=== PATIENT | male | born 1930 | race Caucasian/White ===

== ENCOUNTER → 2016-11-18 | Outpatient (CLI) | payer MEDICARE ==
[~2016-11-18] MED LIST: ASPIRIN PO; ASPIRINEC PO; BENAZEPRIL HCL40 MG PO; BENAZEPRIL PO; CELEBREX PO; CENTRUM SILVER PO; COLCRYS0.6 MG PO; COUMADIN5 MG PO; DARVOCET-N 1001 TAB PO; GLUCOTROL PO; GLUCOVANCE 5/501 TA1 PO; HYDROCODON-ACE1 EAC7 PO; JALYN 0.5-0.41 EACH PO; KEFLEX500 M1 PO; LASIX PO; LASIX20 MG PO; LEVEMIR FL100 UNIT/1 SUBQ; LIPITOR40 MG PO; LOTENSIN40 MG PO; LOVAZA1 G PO; METOPROLOL TAR25 MG PO; MULTI-DAY VITAM1 TAB PO; NEXIUM PO; NITROGLYCERIN; OCUVITE SOFTGEL1 CA1 PO; PERCOCET 5-3251 TAB PO; PLAVIX PO; SULAR PO; SULAR20 MG PO; VYTORIN 10-40 M1 TAB PO; VYTORIN 10/40 T1 TAB PO; WARFARIN SODIU7.5 M1 PO; WARFARIN SODIUM10 M1 PO; XERALTO PO; ZYLOPRIM100 MG PO
--- NOTE | ~2016-11-18 | CR229 ---
[facility] A Service of [facility] RADIOLOGY TEXT RESULTS PATIENT: CONCEPCION LEYVA LOCATION: [facility] : 32 UNIT #: [id number] AGE: [address]: NORAH WAGNER MD SEX: M ORDER DR: [id number] [id number] [place], [place] [address] [id number] O MR#: [id number] Acc #: [id number] NAME: CONCEPCION LEYVA : 1930 SEX: M STUDY DATE/TIME: 11/18/2016 14:45 UNIT: [facility] ROOM: STUDY DESCRIPTION: CR Shoulder Min 2 View Lt Attending Physician: Norah Wagner M.D. Referring Physician: Norah Wagner M.D. Primary Care Physician: Norah Wagner M.D. MEDICAL IMAGING REPORT This report is preliminary unless electronic signature is present EXAM Left shoulder 11/18/2016 INDICATIONS 86-year-old male with a history of pain in the left shoulder fell a year ago. TECHNIQUE 3 views of the left shoulder no comparisons. FINDINGS The bones are osteoporotic. There is degenerative change of the glenohumeral joint and AC joint. No acute fracture. Chronic rib fractures on the left. Old healed granulomatous disease. No distinct shoulder dislocation or shoulder separation. IMPRESSION 1. Degenerative changes of the left shoulder but no acute fracture. 2. No shoulder separation or dislocation. 3. The bones are osteoporotic. Dictated by... Arvind Russell M.D. THIS IS AN ELECTRONICALLY VERIFIED REPORT Arvind Russell M.D. at 11/19/2016 10:15 AM DION/santosh TD: 11/18/2016 19:22 JOB #: [id number] MEDICAL IMAGING REPORT [facility] A Service [facility] RADIOLOGY TEXT RESULTS PATIENT: CONCEPCION LEYVA LOCATION: [facility] : 31 UNIT #: [id number] AGE: [address]: NORAH WAGNER MD SEX: M ORDER DR: COPY
== END | disposition home or self-care (01) ==
LOC: CRAD 14:12
DX: M25.512 Pain in left shoulder (principal); M19.012 Primary osteoarthritis, left shoulder
CPT/HCPCS: 73030

== ENCOUNTER → 2016-11-20 | Outpatient (CLI) | payer MEDICARE ==
--- NOTE | ~2016-11-20 | CR93 ---
[facility] A Service of [facility] & [facility] RADIOLOGY TEXT RESULTS PATIENT: CONCEPCION LEYVA LOCATION: [facility] : 31 UNIT #: [id number] AGE: [address]: NORAH WAGNER MD SEX: M ORDER DR: [id number] [facility] [address] [place], [place] [address] [id number] O MR#: [id number] Acc #: [id number] NAME: CONCEPCION LEYVA. : 1930 SEX: M STUDY DATE/TIME: 11/20/2016 13:22 UNIT: [facility] ROOM: STUDY DESCRIPTION: CR Elbow Min 3 Views Lt Attending Physician: Norah Wagner M.D. Referring Physician: Norah Wagner M.D. Ordering Physician: Norah Wagner M.D. Primary Care Physician: Norah Wagner M.D. MEDICAL IMAGING REPORT This report is preliminary unless electronic signature is present EXAM Left elbow total of 4 views HISTORY Left elbow pain after fall beginning 5.5 weeks ago. FINDINGS An AP view of the elbow and oblique and lateral views of the elbow are submitted. The patient has 2 orthopedic fixation screws presumably transfixing an old radial head fracture. There are advanced secondary arthritic changes present. The appearance has not changed significantly from the recent radiographs of 05/07/2015. CONCLUSION Postsurgical changes in the radial head. Advanced secondary post-traumatic degenerative arthritis. Dictated by... Dominic Solomon M.D. THIS IS AN ELECTRONICALLY VERIFIED REPORT Dominic Solomon M.D. at 11/23/2016 5:09 PM MOI/mayelin TD: 11/21/2016 10:29 JOB #: [id number] MEDICAL IMAGING REPORT Page 1 of 1 COPY
--- NOTE | ~2016-11-20 | CR151 ---
[facility] A Service of [facility] & [facility] RADIOLOGY TEXT RESULTS PATIENT: CONCEPCION LEYVA LOCATION: [facility] : 31 UNIT #: [id number] AGE: [address]: NORAH WAGNER MD SEX: M ORDER DR: [id number] [facility] [address] [place], [place] [address] [id number] O MR#: [id number] Acc #: [id number] NAME: CONCEPCION LEYVA. : 1930 SEX: M STUDY DATE/TIME: 11/20/2016 12:57 UNIT: [facility] ROOM: STUDY DESCRIPTION: CR Hip Min 2 Views Rt Attending Physician: Norah Wagner M.D. Referring Physician: Norah Wagner M.D. Ordering Physician: Norah Wagner M.D. Primary Care Physician: Norah Wagner M.D. MEDICAL IMAGING REPORT This report is preliminary unless electronic signature is present EXAM AP pelvis and right hip 3 views HISTORY Right hip pain beginning 5.5 weeks ago. TECHNIQUE AP view of the pelvis and AP and oblique views of the right hip were obtained and these are compared directly to prior radiographs which are dated 05/02/2015. FINDINGS The bony elements appear intact with no fractures seen. There is marginal spur formation. There are atherosclerotic calcifications present. No lytic or blastic lesions are identified. CONCLUSION Degenerative spur formation. No acute fractures. Diffuse atherosclerotic disease. Dictated by... Dominic Solomon M.D. THIS IS AN ELECTRONICALLY VERIFIED REPORT Dominic Solomon M.D. at 11/23/2016 5:09 PM MOI/mayelin TD: 11/21/2016 10:15 JOB #: [id number] MEDICAL IMAGING REPORT Page 1 of 1 COPY
== END | disposition home or self-care (01) ==
LOC: CRAD 12:16
DX: M25.512 Pain in left shoulder (principal); M25.551 Pain in right hip; M16.11 Unilateral primary osteoarthritis, right hip; Z98.890 Other specified postprocedural states
CPT/HCPCS: 73080; 73502